=== PATIENT | female | born 1995 | race Caucasian/White ===

== ENCOUNTER → 2016-08-18 09:52 | Emergency (ER) | payer OTHER ==
[~2016-08-18 09:52] MED LIST: Al Hydrox/Mg Hydrox/Simet LIQ* 30 ML UDC PO ONE; Lidocaine 2% VISCOUS* 15 ML UDC PO ONE; NS 0.9% 1000 ML* 1,000 ML IV ONE
[2016-08-18 11:50] LABS: Hematocrit 42 % (35-47); Hemoglobin 14.1 g/dl (12.0-16.0); Mean Corpuscular HGB Conc 33 g/dl (31-36); Mean Corpuscular Hemoglobin 30 pg (27-31); Mean Corpuscular Volume 91 fL (80-97); Mean Platelet Volume 10 um3 (7.4-10.4); Red Blood Count 4.66 10^6/ul (4.0-5.4); Red Cell Distribution Width 13 % (10.5-15); White Blood Count 7.5 10^3/ul (3.5-10.8)
[2016-08-18 12:01] LABS: Albumin 4.7 g/dL (3.2-5.2); BUN/Creatinine Ratio 17.2 (8-20); Calcium 9.7 mg/dL (8.6-10.3); EGFR African American 168.8 (>60); EGFR Non-African American 131.2 (>60); Globulin 2.7 g/dL (2-4); Magnesium 2.1 mg/dL (1.9-2.7); Phosphorus 3.5 mg/dL (2.5-5.0); Potassium 3.7 mmol/L (3.5-5.0); Total Bilirubin 0.5 mg/dL (0.2-1.0); Total Protein 7.4 g/dL (6.4-8.9)
[2016-08-18 12:02] LABS: Troponin I 0.01 ng/mL (<0.04)
--- NOTE | 2016-08-18 12:09 | RAD ---
Indication: Chest pain. 2 views of the chest including dual energy PA views demonstrates no mediastinal shift. Heart is of normal size and configuration. Lung ngo demonstrate no pleural fluid, pneumonia or pneumothorax. IMPRESSION: No active cardiopulmonary disease is noted.
--- NOTE | 2016-08-18 12:25 | ED ---
HPI Chest Pain - HPI Summary HPI Summary: Pt presents w/ persistent and worsening chest pain x 1 month. This is sharp, sternal and slightly off to Lt - worse w/ exertion (ie. running, climbing stairs , etc). Has had dizziness over the past month as well. Reports recent weight loss of 30lbs since Apr 2016 and believes 20lbs of this loss was within a month. She became depressed in April and withdrew from a few classes, leadership activities - pt reports she had a reduced appetite at that time and wasn't eating much. This triggered emotional feeling of food controlling which she used to di in middle school/high school (ie. h/o purging, food withholding and excessive exercise). She denies use of diuretics, laxatives. Was drinking energy drinks and lots of coffee but realized these weren't good for her current condition so has cut back significantly (ie. doesn't drink energy drinks at all anymore and rarely drinks/eats caffeine). She has persistent nausea and ab pain w/ eating. Followed by [facility] at [facility] - has been on Lexapro for 1 week now. Notes from [facility] indicate pt was encouraged to eat q 3 hours and take digestive enzymes to help - she has been doing this by setting an alarm to remind herself to eat. [facility] med note also indicates she may be trialed on reglan if nausea persists - pt states she's allergic to this medication. - History of Current Complaint Chief Complaint: EDGeneral Time Seen by Provider: 08/18/16 11:16 Hx Obtained From: Patient Pain Intensity: 0 - Allergy/Home Medications Allergies/Adverse Reactions: Allergies Allergy/AdvReac Type Severity Reaction Status Date / Time Amoxicillin [From Augmentin] Allergy Unknown Verified 08/18/16 11:18 Reaction Details Clavulanic Acid Allergy Unknown Verified 08/18/16 11:18 [From Augmentin] Reaction Details Metoclopramide [From Reglan] Allergy Unknown Verified 08/18/16 11:18 Reaction Details PMH/Surg Hx/FS Hx/Imm Hx Previously Healthy: Yes Endocrine/Hematology History: Denies: Hx Anticoagulant Therapy, Hx Blood Disorders, Hx Thyroid Disease, Hx Anemia, Autoimmune Disease Cardiovascular History: Denies: Hx Congenital Heart Disease Respiratory History: Reports: Hx Asthma - well controlled - sx today do not feel like asthma GI History: Reports: Other GI Disorders - gastritis? 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 Negative: Vomiting, Diarrhea - constipation Genitourinary: Negative, Other - has only had 1 period since placement of nexplanon 1 year ago Musculoskeletal: Negative Skin: Negative Neurological: Other - see HPI Psychological: Other - see HPI All Other Systems Reviewed And Are Negative: Yes Physical Exam Triage Information Reviewed: Yes Vital Signs On Initial Exam: Initial Vitals Temp Pulse Resp BP Pulse Ox 97.9 F 71 20 123/76 99 08/18/16 10:01 08/18/16 10:01 08/18/16 10:01 08/18/16 10:01 08/18/16 10:01 Vital Signs Reviewed: Yes Appearance: Positive: Well-Appearing, No Pain Distress, Well-Nourished Skin: Positive: Warm, Dry Head/Face: Positive: Normal Head/Face Inspection Eyes: Positive: Normal, EOMI, Conjunctiva Clear - anicteric sclera ENT: Positive: Hearing grossly normal, Pharynx normal - mucosa moist Neck: Positive: Supple - no gross thyromegaly, Nontender Respiratory/Lung Sounds: Positive: Clear to Auscultation, Breath Sounds Present. Negative: Rales, Rhonchi, Wheezes Cardiovascular: Positive: Normal, RRR, Pulses are Symmetrical in both Upper and Lower Extremities, S1, S2. Negative: Murmur, Rub Abdomen Description: Positive: Nontender, No Organomegaly, Soft, Other: - "discomfort" w/ epigastric palpation Bowel Sounds: Positive: Present Musculoskeletal: Positive: Normal, Strength/ROM Intact Neurological: Positive: Normal, Sensory/Motor Intact, Alert, Oriented to Person Place, Time, CN Intact II-III Psychiatric: Positive: Normal - [place] Coma Scale Coma Scale Total: 15 Diagnostics - Vital Signs Vital Signs Temp Pulse Resp BP Pulse Ox 08/18/16 11:13 68 18 120/73 97 08/18/16 11:12 110/68 08/18/16 10:04 97.9 F 67 20 123/76 99 08/18/16 10:01 97.9 F 71 20 123/76 99 - Laboratory Lab Results: Lab Results 08/18/16 08/18/16 08/18/16 Range/Units 10:37 10:37 10:37 WBC 7.5 (3.5-10.8) 10^3/ul RBC 4.66 (4.0-5.4) 10^6/ul Hgb 14.1 (12.0-16.0) g/dl Hct 42 (35-47) % MCV 91 (80-97) fL MCH 30 (27-31) pg MCHC 33 (31-36) g/dl RDW 13 (10.5-15) % Plt Count 318 (150-450) 10^3/ul MPV 10 (7.4-10.4) um3 Neut % (Auto) 56.5 (38-83) % Lymph % (Auto) 31.4 (25-47) % [place] % (Auto) 9.6 H (1-9) % Eos % (Auto) 2.0 (0-6) % Baso % (Auto) 0.5 (0-2) % Absolute Neuts (auto) 4.2 (1.5-7.7) 10^3/ul Absolute Lymphs (auto) 2.4 (1.0-4.8) 10^3/ul Absolute Monos (auto) 0.7 (0-0.8) 10^3/ul Absolute Eos (auto) 0.1 (0-0.6) 10^3/ul Absolute Basos (auto) 0 (0-0.2) 10^3/ul Absolute Nucleated RBC 0 10^3/ul Nucleated RBC % 0 INR (Anticoag Therapy) 1.00 (0.89-1.11) APTT 28.7 (26.0-36.3) seconds D-Dimer, Quantitative < 200 (Less Than 230) ng/mL Sodium 138 (133-145) mmol/L Potassium 3.7 (3.5-5.0) mmol/L Chloride 105 (101-111) mmol/L Carbon Dioxide 26 (22-32) mmol/L Anion Gap 7 (2-11) mmol/L BUN 10 (6-24) mg/dL Creatinine 0.58 (0.51-0.95) mg/dL Est GFR ( Amer) 168.8 (>60) Est GFR (Non-Af Amer) 131.2 (>60) BUN/Creatinine Ratio 17.2 (8-20) Glucose 87 (70-100) mg/dL Lactic Acid (0.5-2.0) mmol/L Calcium 9.7 (8.6-10.3) mg/dL Phosphorus 3.5 (2.5-5.0) mg/dL Magnesium 2.1 (1.9-2.7) mg/dL Iron Pending TIBC Pending % Saturation Pending Unsat Iron Binding Pending Total Bilirubin 0.50 (0.2-1.0) mg/dL AST 17 (13-39) U/L ALT 16 (7-52) U/L Alkaline Phosphatase 54 (34-104) U/L Troponin I 0.01 (<0.04) ng/mL Total Protein 7.4 (6.4-8.9) g/dL Albumin 4.7 (3.2-5.2) g/dL Globulin 2.7 (2-4) g/dL Albumin/Globulin Ratio 1.7 (1-3) TSH Pending 08/18/16 Range/Units 10:37 WBC (3.5-10.8) 10^3/ul RBC (4.0-5.4) 10^6/ul Hgb (12.0-16.0) g/dl Hct (35-47) % MCV (80-97) fL MCH (27-31) pg MCHC (31-36) g/dl RDW (10.5-15) % Plt Count (150-450) 10^3/ul MPV (7.4-10.4) um3 Neut % (Auto) (38-83) % Lymph % (Auto) (25-47) % [place] % (Auto) (1-9) % Eos % (Auto) (0-6) % Baso % (Auto) (0-2) % Absolute Neuts (auto) (1.5-7.7) 10^3/ul Absolute Lymphs (auto) (1.0-4.8) 10^3/ul Absolute Monos (auto) (0-0.8) 10^3/ul Absolute Eos (auto) (0-0.6) 10^3/ul Absolute Basos (auto) (0-0.2) 10^3/ul Absolute Nucleated RBC 10^3/ul Nucleated RBC % INR (Anticoag Therapy) (0.89-1.11) APTT (26.0-36.3) seconds D-Dimer, Quantitative (Less Than 230) ng/mL Sodium (133-145) mmol/L Potassium (3.5-5.0) mmol/L Chloride (101-111) mmol/L Carbon Dioxide (22-32) mmol/L Anion Gap (2-11) mmol/L BUN (6-24) mg/dL Creatinine (0.51-0.95) mg/dL Est GFR ( Amer) (>60) Est GFR (Non-Af Amer) (>60) BUN/Creatinine Ratio (8-20) Glucose (70-100) mg/dL Lactic Acid 1.0 (0.5-2.0) mmol/L Calcium (8.6-10.3) mg/dL Phosphorus (2.5-5.0) mg/dL Magnesium (1.9-2.7) mg/dL Iron TIBC % Saturation Unsat Iron Binding Total Bilirubin (0.2-1.0) mg/dL AST (13-39) U/L ALT (7-52) U/L Alkaline Phosphatase (34-104) U/L Troponin I (<0.04) ng/mL Total Protein (6.4-8.9) g/dL Albumin (3.2-5.2) g/dL Globulin (2-4) g/dL Albumin/Globulin Ratio (1-3) TSH Result Diagrams: 08/18/16 10:37 08/18/16 10:37 Lab Statement: Any lab studies that have been ordered have been reviewed, and results considered in the medical decision making process. Re-Evaluation - Re-Evaluation First Eval Change: Improved - chest pain/ab pain improved s/p GI cocktail Chest Pain Course/Dx - Diagnoses Provider Diagnoses: GERD (gastroesophageal reflux disease) Discharge - Discharge Plan Condition: Stable Disposition: HOME Prescriptions: Omeprazole CAP* [Prilosec CAP* 20 MG] 20 mg PO BID #[id number] cap Patient Education Materials: Gastroesophageal Reflux Disease (ED) Referrals: [facility] [Outside] Additional Instructions: Avoid foods that may trigger symptoms. Start medication to reduce stomach acid and help buffer stomach lining - sent to pharmacy today. Follow-up with [facility] *If you develop return of chest pain, return to ED
[2016-08-18 12:33] LABS: TSH (Thyroid Stimulating Horm) 0.8 mcIU/mL (0.34-5.60)
[2016-08-18 13:44] LABS: Urine Bilirubin Negative (Negative); Urine Glucose Negative (Negative); Urine Nitrite Negative (Negative)
[2016-08-18 14:34] VITALS: BP 125/76
== END | disposition home or self-care (01) ==
LOC: ED 09:52
DX: R07.9 Chest pain, unspecified (principal); K21.9 Gastro-esophageal reflux disease without esophagitis; R42 Dizziness and giddiness; R63.4 Abnormal weight loss; R11.0 Nausea; Z79.899 Other long term (current) drug therapy; R10.9 Unspecified abdominal pain; Z88.1 Allergy status to other antibiotic agents; Z88.8 Allergy status to other drugs, medicaments and biological substances
CPT/HCPCS: 36415; 71020; 80053; 81003; 83540; 83550; 83605; 83735; 84100; 84443; 84484; 85025; 85379; 85610; 85730; 93005; 96360; 99284; A9270-GY